=== PATIENT | female | born 1980 | race Caucasian/White ===

== ENCOUNTER 2019-10-30 06:55 | Emergency (ER) | payer OTHER ==
--- NOTE | 2019-10-30 10:20 | ER ---
REASON FOR EMERGENCY ROOM VISIT: Diarrhea and crampy abdominal pain. HISTORY: This previously healthy 39-year-old woman from [place] was up visiting family yesterday along with her 2 children. She had a good day yesterday with no unusual symptoms. She had salads and pizza and eggs in the morning yesterday, but nothing unusual. Early this morning approximately 2 hours before she came into the emergency room, she woke up with crampy abdominal pain and felt cold and sweaty and clammy. She did appear to have some nausea, but no vomiting and she had one rather large loose stool after which her symptoms seemed to settle down, although she still has some abdominal discomfort. She has not had any fever, but she did feel sweaty and possibly had some chills prior to her bowel movement. She has not been traveling outside the area nor has she been exposed to anyone with known COVID-19. Her children have been well as has her . There was no blood in her stool. PAST MEDICAL HISTORY: Unremarkable. She has allergies for which she takes Zyrtec and she is 2, para 2. MEDICATIONS: Zyrtec p.r.n. ALLERGIES: ALLERGIC TO FISH AND CEFACLOR. REVIEW OF SYSTEMS: Pertinent positives and negatives as listed in the HPI. PHYSICAL EXAMINATION: GENERAL: She is a healthy appearing woman, in no acute distress. She is afebrile. Heart rate is 86, blood pressure 128/62, respirations 16, O2 sats 100% on room air. HEENT: No conjunctivitis or scleral icterus. Oropharynx is normal. NECK: Supple. No adenopathy. CHEST: Clear to auscultation with no wheezes, rales, or rhonchi. CARDIAC: Regular rate without murmur. ABDOMEN: Nondistended. Bowel sounds are present. She is soft and nontender. There is no rebound or guarding. No hepatosplenomegaly or palpable masses noted. EXTREMITIES: Normal pulses. No edema. SKIN: No rash. LABORATORY: CBC shows a white count of 10,000, her hemoglobin is 10.2. Her CMP was normal except for a glucose borderline elevated at 125 (nonfasting). IMPRESSION: 1. Diarrhea, etiology uncertain, probably viral. 2. Anemia. This might well be due to heavy menstrual periods. This needs to be followed up on. PLAN: She should be followed up in [place] when she returns. She is planning to return today and I encouraged her to follow up with a COVID-19 test and gave her an order for this, even though it is a low probability unexplained GI symptoms can sometimes be a presenting manifestation of COVID-19 and I made that clear to her. We also will try to obtain a stool sample for C difficile and other enteric pathogens. All questions were answered. She understands and agrees. ABBY /[id number]
== END 2019-10-30 08:40 | disposition home or self-care (01) ==
LOC: LB.ED 06:55 → MERGE 06:55 → LB.ED 08:40
DX: R19.7 Diarrhea, unspecified (principal); D64.9 Anemia, unspecified; Z88.1 Allergy status to other antibiotic agents; Z91.013 Allergy to seafood
CPT/HCPCS: 36415; 80053; 85025; 99282; 99284